=== PATIENT | female | born 1995 | race African-American/Black ===

== ENCOUNTER 2024-10-09 09:20 | Emergency (ER) | payer BC, OTHER ==
[2024-10-09 10:03] LABS: Absolute Eosinophils 0.1 K/uL (0-0.5); Absolute Lymphocytes (CBC) 1.2 K/uL (0.7-4.9); Absolute Monocytes 1.1 K/uL (0.1-1.3); Absolute Neutrophil 8.5 K/uL (1.8-8.0); Basophils % 0.2 % (0-1.3); Eosinophils % 0.8 % (0-4.4); Hematocrit 32.4 % (36.0-45.0); Hemoglobin 11.3 g/dL (12.0-15.0); Lymphocytes % 10.9 % (15.3-44.8); MCH 30.3 pg (27.0-35.0); MCHC 34.8 g/dL (32.0-36.0); MCV 86.9 fL (80-100); MPV 8.8 fL (7.6-11.3); Monocytes % 10.5 % (3.3-12.3); Neutrophils % 77.6 % (41.7-73.7); Nucleated Red Blood Cells % 0.1 % (0-0); Platelets 206 thou/uL (152-406); RBC Red Blood Cell Count 3.73 M/uL (3.86-4.86); Red Cell Distribution Width 13.9 % (12.1-15.2)
[2024-10-09 10:04] LABS: PT Prothrombin Time 11.3 SECONDS (9.4-12.5); Protime INR 1.08
[2024-10-09 10:17] LABS: Anion Gap 8.2 mEq/L (5.0-15.0); BUN Blood Urea Nitrogen 7 mg/dL (7-18); Bicarbonate 27 mEq/L (21-32); Glomerular Filtration Rate 128 ml/min (=/>90); Glucose Level 77 mg/dL (74-106); Potassium 3.2 mEq/L (3.5-5.1); Sodium Level 136 mEq/L (136-145)
[2024-10-09 10:19] LABS: Troponin High Sensitivity < 3.0 pg/mL (<58.9)
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
--- NOTE | 2024-10-09 10:45 | ER ---
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 patient states this occurred at approx 0830 this morning and that her pain is a 6/10 on the pain scale. Coronavirus screen: At this time, the client does not indicate any symptoms associated with coronavirus-19. Ebola Screen: No symptoms or risks identified at this time. Initial Sepsis Screen: Does the patient meet any 2 criteria? No. Patient's initial sepsis screen is negative. Does the patient have a suspected source of infection? No. Patient's initial sepsis screen is negative. Risk Assessment: Do you want to hurt yourself or someone else? Patient reports no desire to harm self or others. Onset of symptoms was October 09, 2024 at 08:30. Transition of care: patient was not received from another setting of care. 09:33 Method Of Arrival: Ambulatory ap3 09:33 Acuity: REYES 2 ap3 Triage Assessment: 09:34 General: Appears in no apparent distress. Behavior is calm, cooperative, appropriate ap3 for age. Pain: Complains of pain in chest Pain currently is 6 out of 10 on a pain scale. Neuro: Level of Consciousness is awake, alert, obeys commands, Oriented to person, place, time, situation, Appropriate for age. Cardiovascular: Reports chest pain, Patient's skin is warm and dry. Respiratory: Airway is patent Respiratory effort is even, unlabored, Respiratory pattern is regular, symmetrical. 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 - Infectious Disease History:: Denies. - Social history:: Smoking status: Patient denies any tobacco usage or history of. Screenin:35 [facility] ED Fall Risk Assessment (Adult) History of falling in the last 3 months, ap3 including since admission No falls in past 3 months (0 pts) Confusion or Disorientation No (0 pts) Intoxicated or Sedated No (0 pts) Impaired Gait No (0 pts) Mobility Assist Device Used No (0 pt) Altered Elimination No (0 pt) Score/Fall Risk Level 0 - 2 = Low Risk Oriented to surroundings, Maintained a safe environment, Educated pt \\T\\ family on fall prevention, incl call for assistance when getting out of bed, Assessed \\T\\ reinforced patient's understanding of fall precautions, Hourly rounding (assess needs \\T\\ fall precautionary measures) done, Used ambulatory aids as needed (educated on \\T\\ assisted with), Used gait belt as appropriate. Abuse screen: Denies threats or abuse. Nutritional screening: No deficits noted. Tuberculosis screening: No symptoms or risk factors identified. Assessment: 09:48 General: Appears in no apparent distress. Behavior is calm, cooperative. Pain: ph Complains of pain in chest Pain does not radiate. Pain began 1 hour ago. Neuro: Level of Consciousness is awake, alert, obeys commands, Oriented to person, place, time, situation. Cardiovascular: Reports chest pain. Respiratory: Airway is patent Respiratory effort is even, unlabored. Derm: Skin is pink, warm \\T\\ dry. Vital Signs: 09:33 BP 112 / 80; Pulse 88; Resp 17; Temp 98(O); Pulse Ox 100% on R/A; Weight 63.5 kg; ap3 Height 5 ft. 7 in. ; Pain 6/10; 10:46 BP 100 / 65; Pulse 87; Resp 18; Temp 98.1; Pulse Ox 100% on R/A; ph 09:33 Body Mass Index 21.93 (63.50 kg, 170.18 cm) ap3 09:33 Pain Scale: Adult ap3 Vitals: 09:55 Heart Tones 135. ld1 ED Course: 09:21 Patient arrived in ED. ra3 09:22 Nick Villar MD is Attending Physician. bo1 09:26 Yarely Brooks RN is Primary Nurse. ph 09:32 Patient has correct armband on for positive identification. Bed in low position. Call ap3 light in reach. Side rails up X 1. Adult w/ patient. Client placed on continuous cardiac and pulse oximetry monitoring. NIBP monitoring applied. rod puller and coiler on. Pulse ox on. NIBP on. 09:34 Triage completed. ap3 09:35 Patient maintains SpO2 saturation greater than 95% on room air. ap3 09:48 Arm band placed on Patient placed in an exam room, on a stretcher, on pattern data operator, ph on pulse oximetry. 09:49 EKG done, by ED staff, reviewed by Nick Villar MD. ph 09:55 Inserted saline lock: 22 gauge in left antecubital area, using aseptic technique. Blood ld1 collected. Flushed with 10 mL NS. 11:13 No provider procedures requiring assistance completed. IV discontinued, intact, ph bleeding controlled, No redness/swelling at site. Pressure dressing applied. Administered Medications: 11:13 Drug: Potassium Chloride PO 20 mEq PO once Route: PO; ph 11:13 Follow up: Response: No adverse reaction; Medication administered at discharge. ph Medication: 09:48 VIS not applicable for this client. ph Outcome: 10:44 Discharge ordered by . bo1 11:13 Discharged to home ambulatory, ph 11:13 Condition: good 11:13 Discharge instructions given to patient, Instructed on discharge instructions, follow up and referral plans. Demonstrated understanding of instructions, follow-up care, 11:16 Patient left the ED. ph Signatures: Yarely Brooks, RN RN ph Gayle Rogers RN RN ap3 Denita Aguirre RN RN adelso1 Patricia Martino ra3 Nick Villar MD MD bo1 Corrections: (The following items were deleted from the chart) 09:49 09:35 LMP 04/27/2024, unknown ap3 ph
[2024-10-09] MEDS ORDERED: POTASSIUM CL SA 10 MEQ TAB PO ONE (11:07)
[2024-10-09 11:32] VITALS: O2SAT 100
[2024-10-09 11:37] VITALS: BP 100/65; TEMP 98.1
--- NOTE | 2024-10-10 15:10 | EKG ---
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
== END 2024-10-09 11:16 | disposition home or self-care (01) ==
LOC: ER 09:20
DX: O99.282 Endocrine, nutritional and metabolic diseases complicating pregnancy, second trimester (principal); E87.6 Hypokalemia; Z3A.23 23 weeks gestation of pregnancy
CPT/HCPCS: 36415; 80048; 83735; 84484; 85025; 85610; 93005; 99285